=== PATIENT | male | born 1955 | race Caucasian/White ===

== ENCOUNTER 2017-04-06 17:32 | Emergency (ER) | payer SELFPAY ==
[2017-04-06 18:11] VITALS: BP 162/75; PULSE 92; O2SAT 95
[2017-04-06] MEDS ORDERED: Sodium Chloride 0.9% 1000 ML 1,000 ML IV SCH (18:15)
[2017-04-06] MEDS ORDERED: Sodium Chloride 0.9% 1000 ML 1,000 ML ONE (18:25)
[2017-04-06] MEDS ORDERED: TYLENOL 325 MG PO ONE (18:26)
[2017-04-06] MEDS ORDERED: Hydromorphone 1 mg/ml Ampule IV ONE (18:26)
--- NOTE | 2017-04-06 18:26 | ERPHSYRPT ---
- History of Present Illness Time Seen by Provider: 04/06/17 18:03 Source: patient Patient Subjective Stated Complaint: PT REPORTS HE HAS BEEN RUNNING LOW GRADE FEVER FOR JASMYNE 1 WK-STATES THAT JASMYNE 3 HRS AGO HIS RIGHT TESTICLE BEGAN HURTING- DENIES UNUSUAL DIFFICUTLY WTIH URIANTION-DENIES N/V/D Triage Nursing Assessment: PT ALERT-PINK WARM ET DRY-TENDERNESS NOTED TO RIGHT TESTICLE-RESP NONLABORED Physician History: CC: right testicle pain Hx: 61 y/o male patient of [facility]. He reports allergic to all antibiotics. He has recent chills all week. Low grade fever beginning of the week. He has right testicle pain for the past 4 hours which is rather severe. No penile discharge. No dysuria. No back pain. No vomiting or abd pain. Timing/Duration: today Hx Tetanus, Diphtheria Vaccination/Date Given: No Hx Influenza Vaccination/Date Given: Yes Hx Pneumococcal Vaccination/Date Given: No Immunizations Up to Date: Yes - Past Medical History Pertinent Past Medical History: Yes Psycho-Social History: Anxiety Male Reproductive Disorders: Prostate Problems - Past Surgical History Past Surgical History: Yes Musculoskeletal: Orthopedic Surgery - Social History Smoking Status: Never smoker Drug Use: none Patient Lives Alone: No - Review of Systems Constitutional: Fever, Chills Eyes: No Symptoms Ears, Nose, & Throat: No Symptoms Respiratory: No Cough, No Dyspnea Cardiac: No Chest Pain Abdominal/Gastrointestinal: No Abdominal Pain, No Nausea, No Vomiting Genitourinary Symptoms: Testicle Pain (right), No Dysuria, No Flank Pain Musculoskeletal: No Back Pain Skin: No Rash Neurological: No Headache All Other Systems: Reviewed and Negative - Nursing Vital Signs Nursing Vital Signs: Initial Vital Signs Temperature 98.3 F Temperature Source Oral Pulse Rate 92 Respiratory Rate 20 Blood Pressure [Right Arm] 162/75 Pain Intensity 8 - Physical Exam General Appearance: alert, other (scattered historian) Eye Exam: PERRL/EOMI Ears, Nose, Throat Exam: normal ENT inspection, moist mucous membranes Neck Exam: normal inspection, non-tender, supple Respiratory Exam: normal breath sounds, lungs clear Cardiovascular Exam: regular rate/rhythm Gastrointestinal/Abdomen Exam: soft, No tenderness, No distention, No mass, No guarding Male Genital Exam: circumcised (right testicle tender with epidydimal cyst or swelling, no urethral discharge, prostate large, tender and nodular) Back Exam: normal inspection, normal range of motion Extremity Exam: normal inspection, normal range of motion Neurologic Exam: alert, oriented x 3, cooperative, sensation nml, No motor deficits Skin Exam: warm, dry, No rash SpO2 Interpretation: normal SpO2: 95 - Course Nursing assessment & vital signs reviewed: Yes Ordered Tests: Active Orders 24 hr Category Date Time Status Clean Catch Urine Specimen STAT Care 04/06/17 18:10 Active IV Insertion STAT Care 04/06/17 18:10 Active TESTICLE [US] Stat Exams 04/06/17 18:11 Ordered BLOOD CULTURE Stat Lab 04/06/17 18:10 Ordered CBC W DIFF Stat Lab 04/06/17 18:10 Ordered CMP Stat Lab 04/06/17 18:10 Ordered CULTURE,URINE Stat Lab 04/06/17 18:10 Ordered Lactic Acid Stat Lab 04/06/17 18:10 Ordered UA Stat Lab 04/06/17 18:10 Ordered Medication Summary Generic Name Dose Route Start Last Admin Trade Name Freq PRN Reason Stop Dose Admin Sodium Chloride 1,000 mls @ 100 mls/hr 04/06/17 18:15 04/06/17 18:27 Sodium Chloride 0.9% 1000 Ml IV 05/06/17 18:14 100 mls/hr .Q10H LATRICE Administration Discontinued Medications Generic Name Dose Route Start Last Admin Trade Name Freq PRN Reason Stop Dose Admin Acetaminophen 650 mg 04/06/17 18:26 Tylenol 325 Mg PO 04/06/17 18:27 STAT ONE Acetaminophen Confirm 04/06/17 18:34 Tylenol 325 Mg Administered 04/06/17 18:35 Dose 650 mg .ROUTE .STK-MED ONE Hydromorphone HCl 1 mg 04/06/17 18:26 Hydromorphone 1 Mg/Ml Ampule IV 04/06/17 18:27 STAT ONE Hydromorphone HCl Confirm 04/06/17 18:34 Hydromorphone 1 Mg/Ml Ampule Administered 04/06/17 18:35 Dose 1 mg .ROUTE .STK-MED ONE - Progress Progress Note: 04/06/17 18:43 Labs and sono ordered. He then told nurse he wants to go home. He called his and will have her drive him as he was advised no driving. Advised pt he likely has UTI which could worsen to systemic infection causing disabililty or . He states he plans to take natural antibiotics and vitamin C and cranberry juice. He refuses further treatment. Medication for pain and anxiety offered but he declines. Will release AMA. Counseled pt/family regarding: diagnosis, need for follow-up - Departure Time of Disposition: 18:45 Departure Disposition: AMA Clinical Impression: Orchitis, right Condition: Stable Critical Care Time: No Instructions: Testicular Pain Additional Instructions: [facility] Return for worsening or concerns. No driving tonite and stay with family.
[2017-04-06] MEDS ORDERED: TYLENOL 325 MG ONE (18:34)
[2017-04-06] MEDS ORDERED: Hydromorphone 1 mg/ml Ampule ONE (18:34)
[2017-04-06 18:55] LABS: Mean Cell Volume 84.5 fl (78-100); Mean Corpuscular Hemoglobin 27.5 pg (26-32); Platelet Count 322 K/mm3 (150-450); Red Blood Count 4.77 M/mm3 (4.1-5.6); Red Cell Distribution Width 13.5 % (11.5-14.0); White Blood Count 16.7 K/mm3 (4.0-10.5)
[2017-04-06 19:07] LABS: Collection Type CLEAN CATCH
[2017-04-06 19:08] LABS: Bacteria FEW /HPF (NEGATIVE); COMPLETE URINE MICROSCOPIC? YES; Epithelial Cells FEW /HPF (FEW); WBC 25-50 /HPF (0-5)
[2017-04-06 19:18] LABS: ALBUMIN 3.3 g/dL (3.4-5.0); ALKALINE PHOSPHATASE 101 U/L (46-116); ANION GAP 12.5 MEQ/L (5-15); BILIRUBIN,TOTAL 0.2 mg/dL (0.2-1.0); BLOOD UREA NITROGEN 12 mg/dL (9-20); CHLORIDE 100 mEq/L (98-107); Carbon Dioxide 25.3 mEq/L (21-32); Glucose 128 MG/DL (70-110); Potassium 4.1 mEq/L (3.5-5.1); SGOT/AST 22 U/L (15-37); SGPT/ALT 62 U/L (12-78); SODIUM 134 mEq/L (136-145); Total Protein 7.4 gm/dL (6.4-8.2)
[2017-04-06 22:07] LABS: Eosinophil 1 % (0.00-3.0); Platelet Estimate NORMAL (NORMAL); Total Cells Counted 100
== END 2017-04-06 18:45 | disposition left against medical advice (07) ==
LOC: ED 17:32
DX: N45.2 Orchitis (principal); R50.9 Fever, unspecified
CPT/HCPCS: 36000; 36415; 80053; 81000; 83605; 85025; 87040; 87077; 87086; 87186; 99283; 99284; J1170; A9270-GY

== ENCOUNTER 2023-04-18 18:20 | Emergency (ER) | payer OTHER ==
--- NOTE | 2023-04-18 18:24 | ERPHSYRPT ---
- History of Present Illness Time Seen by Provider: 04/18/23 18:24 Source: patient Exam Limitations: no limitations Physician History: This is a 67-year-old white male who presents with gross hematuria. He had some left upper quadrant left flank pain yesterday that was significant but then resolved. Today he noticed mild gross hematuria followed by [facility] appearing hematuria. He has no pain. He is not on any anticoagulation therapy. He does have high blood pressure. [facility]. He currently has no abdominal pain and no flank pain. He denies chest pain he does not have any shortness of breath. Timing/Duration: yesterday Activites at Onset: none Quality: other (No pain) Onset Location: left flank, other (Left upper quadrant) Pain Radiation: none Severity of Pain-Max: moderate (Yesterday but this pain resolved) Severity of Pain-Current: none Modifying Factors: Improves With: nothing Associated Symptoms: other (Hematuria), No abdominal pain, No fever, No chills, No nausea, No vomiting, No dysuria, No urinary frequency, No lower back pain Prior abdominal problems: none Sexual intercourse history: non-contributory Allergies/Adverse Reactions: diphenhydramine [From Benadryl] Allergy (Verified 04/18/23 18:55) sulfamethoxazole [From Bactrim] Allergy (Verified 04/18/23 18:55) trimethoprim [From Bactrim] Allergy (Verified 04/18/23 18:55) Hx Tetanus, Diphtheria Vaccination/Date Given: No Hx Influenza Vaccination/Date Given: Yes Hx Pneumococcal Vaccination/Date Given: No Travel Risk - International Travel Have you traveled outside of the country in past 3 weeks: No - Coronavirus Screening Are you exhibiting any of the following symptoms?: No Close contact with a COVID-19 positive Pt in past 14-21 Days: No - Past Medical History Pertinent Past Medical History: Yes Psycho-Social History: Anxiety Male Reproductive Disorders: Prostate Problems - Past Surgical History Past Surgical History: Yes Musculoskeletal: Orthopedic Surgery - Social History Smoking Status: Never smoker Drug Use: none Patient Lives Alone: No - Review of Systems Constitutional: No Symptoms Eyes: No Symptoms Ears, Nose, & Throat: No Symptoms Respiratory: No Symptoms Cardiac: No Symptoms Abdominal/Gastrointestinal: No Symptoms Genitourinary Symptoms: Hematuria, No Flank Pain Musculoskeletal: No Symptoms Skin: No Symptoms Neurological: No Symptoms Psychological: No Symptoms Endocrine: No Symptoms Hematologic/Lymphatic: No Symptoms Immunological/Allergic: No Symptoms All Other Systems: Reviewed and Negative - Nursing Vital Signs Nursing Vital Signs: Initial Vital Signs Temperature 97.9 F 04/18/23 18:55 Pulse Rate 83 04/18/23 18:55 Respiratory Rate 18 04/18/23 18:55 Blood Pressure 179/79 04/18/23 18:55 O2 Sat by Pulse Oximetry 96 04/18/23 18:55 Pain Scale Pain Intensity 0 - Physical Exam General Appearance: no apparent distress, alert, anxiety Eye Exam: PERRL/EOMI, eyes nml inspection Ears, Nose, Throat Exam: normal ENT inspection, moist mucous membranes Neck Exam: normal inspection Respiratory Exam: airway intact, No chest tenderness, No respiratory distress Gastrointestinal/Abdomen Exam: soft, normal bowel sounds, No tenderness Rectal Exam: not done Back Exam: normal inspection, normal range of motion, No CVA tenderness, No vertebral tenderness Extremity Exam: normal inspection, normal range of motion, pelvis stable Neurologic Exam: alert, oriented x 3, cooperative, geriatric social work professor II-XII nml as tested, n ormal mood/affect, nml cerebellar function, nml station & gait, sensation nml Skin Exam: normal color, warm, dry Lymphatic Exam: No adenopathy SpO2 Interpretation: normal O2 Delivery: Room Air - Course Nursing assessment & vital signs reviewed: Yes Ordered Tests: Active Orders 24 hr Category Date Time Status AMA [Release AMA] OM.NOW Care 04/18/23 19:39 Active CBC W DIFF Stat Lab 04/18/23 20:13 Completed CMP Stat Lab 04/18/23 20:13 Received UA W/RFX UR CULTURE Stat Lab 04/18/23 19:02 Completed Lab/Rad Data: Laboratory Result Diagrams 04/18/23 20:13 Laboratory Results 04/18/23 04/18/23 Range/Units 20:13 19:02 WBC 9.8 (4.0-10.5) x10^3/uL RBC 4.85 (4.1-5.6) x10^6/uL Hgb 13.5 (12.5-18.0) g/dL Hct 41.6 L (42-50) % MCV 85.8 (78-100) fL MCH 27.8 (26-32) pg MCHC 32.5 (32-36) g/dL RDW 13.0 (11.5-14.0) % Plt Count 222 (150-450) x10^3/uL MPV 9.7 (7.5-11.0) fL Gran % 61.5 (36.0-66.0) % Immature Gran % (Auto) 0.4 (0.00-0.4) % Nucleat RBC Rel Count 0.0 (0.00-0.1) % Eos # (Auto) 0.45 (0-0.5) x10^3/uL Immature Gran # (Auto) 0.04 H (0.00-0.03) x10^3u/L Absolute Lymphs (auto) 2.25 (1.0-4.6) x10^3/uL Absolute Monos (auto) 0.98 (0.0-1.3) x10^3/uL Absolute Nucleated RBC 0.00 (0.00-0.01) x10^3u/L Lymphocytes % 23.0 L (24.0-44.0) % Monocytes % 10.0 (0.0-12.0) % Eosinophils % 4.6 (0.00-5.0) % Basophils % 0.5 (0.0-0.4) % Absolute Granulocytes 6.03 (1.4-6.9) x10^3/uL Basophils # 0.05 (0-0.4) x10^3/uL Urine Color Yellow (Yellow) Urine Appearance Clear (Clear) Urine pH 6.0 (4.6-8.0) Ur Specific [place] <=1.005 (1.005-1.030) Urine Protein Negative (Negative) Urine Glucose (UA) Negative (Negative) mg/dL Urine Ketones Negative (Negative) Urine Blood Trace (Negative) Urine Nitrite Negative (Negative) Urine Bilirubin Negative (Negative) Urine Urobilinogen 0.2 (0.2) mg/dL Ur Leukocyte Esterase Negative (Negative) U Hyaline Cast (Auto) NONE SEEN (0-2) /LPF Urine Microscopic RBC 0-2 (0-5) /HPF Urine Microscopic WBC 0-2 (0-5) /HPF Ur Epithelial Cells None Seen (None Seen) /HPF Urine Bacteria None Seen (None Seen) /HPF Urine Culture Reflexed NO (NO) - Progress Progress: unchanged Progress Note: 04/18/23 19:36 This patient's medical issue is 1 of low complexity. The level of complexity and the work-up performed is based on review of the patient's past medical history, review of the patient's medication list, review of the patient's drug allergy list, history present illness, physical findings on examination. The original plan is to place an intravenous line in this patient, provide him with normal saline infusion, draw CBC, CMP, urinalysis, perform a CAT scan of abdomen pelvis. However, the patient will only allow a CBC, CMP and a urinalysis to be performed. He will sign a refusal of care/treatment form. I did explain to him the value and importance of completing a full work-up. He states that he is in full understanding but does not want the other studies and work-up performed. He understands the risks and benefits. 04/18/23 19:38 Counseled pt/family regarding: diagnosis, need for follow-up Medical Desision Making - Diagnostic Testing Diagnostic test were ordered, analyzed, and reviewed by me: Yes - Risk of complications Low Risk: Low risk of morbidity from additional dx testing or treatment - Departure Departure Disposition: Home Clinical Impression: Hematuria Condition: Stable Critical Care Time: No Referrals: DOCTOR,NO FAMILY [Primary Care Provider] - Follow up/PCP as directed Additional Instructions: Drink plenty of fluids. Follow-up with your primary care provider for further evaluation management including referral to a urologist for further assessment of the hematuria. Take your medication as prescribed.
[2023-04-18 19:00] VITALS: PULSE 83
[2023-04-18 19:22] LABS: Appearance Clear (Clear); Bacteria None Seen /HPF (None Seen); Bilirubin Negative (Negative); Blood Trace (Negative); Epithelial Cells None Seen /HPF (None Seen); Glucose, Urine Negative (Negative); Hyaline Casts NONE SEEN /LPF (0-2); Ketones Negative (Negative); Leukocyte Esterase Negative (Negative); Nitrite Negative (Negative); Protein,Urine Dip Negative (Negative); RBC 0-2 /HPF (0-5); Specific Gravity <=1.005 (1.005-1.030); Urobilinogen 0.2 mg/dL (0.2); WBC 0-2 /HPF (0-5)
[2023-04-18 19:35] LABS: ADD URINE CULTURE? NO (NO)
[2023-04-18 19:38] VITALS: BP 158/78; O2SAT 94
[2023-04-18 20:15] LABS: Absolute Neutrophil Ct (ANC) 6.03 x10^3/uL (1.4-6.9); BASOPHIL % 0.5 % (0.0-0.4); Basophil (Absolute #) 0.05 x10^3/uL (0-0.4); Eosinophil % 4.6 % (0.00-5.0); Eosinophil (Absolute #) 0.45 x10^3/uL (0-0.5); Hematocrit 41.6 % (42-50); Hemoglobin 13.5 g/dL (12.5-18.0); IMMATURE GRAN # 0.04 x10^3u/L (0.00-0.03); IMMATURE GRAN % 0.4 % (0.00-0.4); Lymphocyte (Absolute #) 2.25 x10^3/uL (1.0-4.6); Mean Cell Volume 85.8 fL (78-100); Mean Corpuscular Hemoglobin 27.8 pg (26-32); Mean Corpuscular Hgb Concent. 32.5 g/dL (32-36); Mean Platelet Volume 9.7 fL (7.5-11.0); Monocyte (Absolute #) 0.98 x10^3/uL (0.0-1.3); Neutrophil % 61.5 % (36.0-66.0); Platelet Count 222 x10^3/uL (150-450); Red Blood Count 4.85 x10^6/uL (4.1-5.6); White Blood Count 9.8 x10^3/uL (4.0-10.5)
[2023-04-18 20:29] LABS: ALBUMIN 4.3 g/dL (3.5-5.0); ALKALINE PHOSPHATASE 105 U/L (38-126); ANION GAP 14.8 MEQ/L (5-15); BLOOD UREA NITROGEN 23 mg/dL (9-20); CHLORIDE 101 mmol/L (98-107); Calcium 9.3 mg/dL (8.4-10.2); Carbon Dioxide 26 mmol/L (22-30); Creatinine 1 1.23 mg/dL (0.66-1.25); EST GLOMERULAR FILTRATION RATE > 60.0 ML/MIN; Glucose 162 mg/dL (74-106); Potassium 4.1 mmol/L (3.5-5.1); SGOT/AST 30 U/L (17-59); SGPT/ALT 45 U/L (0-50); SODIUM 138 mmol/L (137-145)
== END 2023-04-18 20:58 | disposition home or self-care (01) ==
LOC: ED 18:20
DX: R31.0 Gross hematuria (principal); I10 Essential (primary) hypertension
CPT/HCPCS: 36415; 80053; 81001; 85025; 99282